=== PATIENT | female | born 1980 | race Hispanic/Latino ===

== ENCOUNTER → 2023-03-25 | Day surgery (SDC) | payer BC ==
--- NOTE | 2023-03-25 12:42 | RAD REPORT ---
EXAM DESCRIPTION: US - BREAST/AXILLA, LIMITED - 03/25/2023 11:04 am CLINICAL HISTORY: N63.11 COMPARISON: No comparisons FINDINGS: The patient was initially referred for ultrasound-guided core biopsy. Radiologist directed pre-procedure planning sonography was performed, focusing on a vague hypoechoic tissue 12 o'clock location. Prior breast imaging studies were reviewed. No definitive true mass lesion could be consistently reproduced in real-time in the area of interest 12 o'clock right breast to warrant biopsy this time. Overall, the combination of mammographic and sonographic findings are indeterminate for malignancy. IMPRESSION: Indeterminate mammographic and sonographic findings for right breast malignancy. MRI rick asts is recommended for problem solving purposes. BI-RAD: 0, incomplete ResultCode: I
== END ==
LOC: DS 08:00
PROVIDERS: ATTEND Obstetrics & Gynecology
DX: N63.11 Unspecified lump in the right breast, upper outer quadrant (principal); Z53.8 Procedure and treatment not carried out for other reasons
CPT/HCPCS: 76642